=== PATIENT | female | born 1975 | race Caucasian/White ===

== ENCOUNTER 2016-10-26 22:38 | Emergency (ER) | payer OTHER ==
[~2016-10-26 22:38] MED LIST: ASPIR-LOW81 MG PO; CARAFATE1 GM PO; COZAAR50 MG PO; DEPAKOTE250 MG PO; ISOSORBIDE MONO30 MG PO; KEPPRA500 MG PO; LASIX40 MG PO; NITROGLYCERIN0.4 MG SL; PANTOPRAZOLE SO40 MG PO; SYNTHROID50 MCG PO; TOPAMAX50 MG PO; TRADJENTA5 MG PO; ZESTRIL20 M1 PO; ZITHROMAX500 MG PO
[2016-10-27 00:55] LABS: BASO % 0.1 % (0.1-1.2); EOS # 0.1 10_X3_uL (0.0-0.4); EOS % 0.5 % (0.7-5.8); GRAN # 9.3 10_X3_uL (1.6-6.1); GRAN % 83.5 % (34.0-71.1); HEMATOCRIT 41.7 % (34-45); HEMOGLOBIN 13.8 g/dL (11.2-15.7); LYMPH # 0.8 10_X3_uL (1.2-3.7); LYMPH % 7.3 % (19.3-51.7); MEAN CORPUSCULAR HEMOGLOBIN 27.2 pg (27.0-33.0); MEAN CORPUSCULAR HGB CONC 33.1 g/dL (32.0-36.0); MEAN CORPUSCULAR VOLUME 82.2 fL (79-95); MEAN PLATELET VOLUME 10.5 fl (7.5-11.5); MONO % 8.6 % (4.7-12.5); PLATELET COUNT 151 x10_3/uL (182-369); RED BLOOD COUNT 5.07 x10_6/uL (3.9-5.2); RED CELL DISTRIBUTION WIDTH 15.1 % (11.7-14.4); WHITE BLOOD COUNT 11.1 x10_3/uL (4.0-10.0)
[2016-10-27 01:13] LABS: ALBUMIN 3.9 gm/dL (3.4-5.0); ALKALINE PHOSPHATASE 87 U/L (50-136); ALT/SGPT 13 U/L (3.5-33.9); AST/SGOT 15 U/L (7.04-26.96); BILIRUBIN,TOTAL 0.54 mg/dL (0.0-1.0); BLOOD UREA NITROGEN 12 mg/dL (7-18); CALCIUM 8.9 mg/dL (8.7-10.7); CARBON DIOXIDE 23 mmol/L (21-32); CREATININE 0.7 mg/dL (0.6-1.3); GLUCOSE,RANDOM 140 mg/dL (70-99); LIPASE 25 U/L (6.75-60.75); TOTAL PROTEIN 7.4 gm/dL (6.4-8.2)
[2016-10-27 01:59] LABS: POTASSIUM 4.1 mmol/L (3.5-5.1); SODIUM 138 mmol/L (136-145)
== END 2016-10-27 02:37 | disposition home or self-care (01) ==
LOC: ER 22:38
PROVIDERS: Emergency Medicine
DX: R06.02 Shortness of breath (principal); R11.2 Nausea with vomiting, unspecified; R51 Headache; R19.7 Diarrhea, unspecified; E11.9 Type 2 diabetes mellitus without complications; G40.909 Epilepsy, unspecified, not intractable, without status epilepticus; I10 Essential (primary) hypertension; Z88.8 Allergy status to other drugs, medicaments and biological substances; Z79.899 Other long term (current) drug therapy
CPT/HCPCS: 36415; 71020; 80053; 83690; 85025; 93005; 94664; 99285-25